=== PATIENT | male | born 1975 | race Caucasian/White ===

== ENCOUNTER 2016-03-17 16:52 | Inpatient (IN) | payer OTHER ==
[~2016-03-17] VITALS: Ht 182.9 cm; Wt 110.1 kg
[~2016-03-17 16:52] MED LIST: DOCU-41 PO; ENOX40DI8 SUBQ; HYDR-3797 PO; LIP40 PO; LORA10CA PO; LOSA1TAB70 PO; OXYC1TAB24 PO
--- NOTE | 2016-03-17 18:00 | DRSVH ---
PROCEDURE: CT ABDOMEN AND PELVIS WITH CONTRAST ([id number]) INDICATIONS: ABDOMINAL PAIN TECHNIQUE: After the administration of intravenous contrast, 5 mm thick sections acquired from the diaphragm to the symphysis. 5 mm coronal and sagittal reformats were acquired. For radiation dose reduction, the following was used: automated exposure control, adjustment of mA and/or kV according to patient siz e. COMPARISON: None. FINDINGS: Image quality: Excellent. ABDOMEN: Lung bases: Lung bases are clear. Heart size is normal. Solid organs: Liver and spleen are normal in size and enhancement. There is mild diffuse fatty infil tration in the liver. Gallbladder is filled with gallstones. No pericholecystic fluid collections are seen.. Biliary system is non dilated. Pancreas enhances normally. No adrenal nodules. Kidneys de monstrate normal size and enhancement, without hydronephrosis. Peritoneum and bowel: Bowel loops demonstrate normal wall thickness and caliber. No free fluid or a ir. The appendix is normal. Scattered diverticula are present. Nodes and vessels: No retroperitoneal or mesenteric adenopathy by size criteria. Aorta and inferior vena cava are normal in size. Miscellaneous: No ventral hernias. PELVIS: Genitourinary: Bladder wall thickness is normal. Miscellaneous: No inguinal hernias or adenopathy. Bones: No suspicious bony lesions. There is a right hip arthroplasty. No vertebral body compression fractures. IMPRESSION: Gallbladder filled with gallstones. Biliary tree is normal in size and no abnormality is seen of the pancreas. Total right hip arthroplasty. Scattered diverticula. Dictated by: Pavan Abbasi M.D. on 03/17/2016 at 17:58 , Dr. Gilbert was notified of the results Approved by: Pavan Abbasi M.D. on 03/17/2016 at 17:58
[2016-03-17] MEDS ORDERED: MetoCLOpramide 5 mg/mL 2 mL Inj IVPUSH PRN (19:25)
[2016-03-17] MEDS ORDERED: Ondansetron 2 mg/mL 2 mL Inj IVPUSH PRN (19:25)
[2016-03-17] MEDS: HYDROmorphone 1 mg/mL Inj IVPUSH PRN (20:37)
--- NOTE | 2016-03-17 21:19 | NUR ---
ADMIT; 40 yr old male to room 1029 via ambulatory with c/o nausea today, right side abd pain since Wednesday. See admit screens.
[2016-03-17 21:25] VITALS: BP 150/93; PULSE 70; RESP 20; O2SAT 96
[2016-03-17] MEDS: Ampicillin-Sulbactam Inj 3,000 MG in 0.9% Sodium Chloride 100 ML IV SCH (22:33)
--- NOTE | 2016-03-17 23:08 | NUR ---
GI; no c/o nausea. Took liquids at h.s. without problems.
[2016-03-17] MEDS: D5 0.45% NaCl + KCl 20 mEq/L 1,000 ML IV SCH (23:55)
[2016-03-18] VITALS (15 sets, daily range): BP systolic 132–177; BP diastolic 73–108; PULSE 84–104; RESP 13–21; O2SAT 92–99
[2016-03-18] MEDS: HYDROmorphone 1 mg/mL Inj IVPUSH PRN ×8 (00:08→20:02)
[2016-03-18] MEDS: Ampicillin-Sulbactam Inj 3,000 MG in 0.9% Sodium Chloride 100 ML IV SCH ×4 (02:30→20:47)
--- NOTE | 2016-03-18 03:40 | NUR ---
GI; no c/o nausea. Npo after midnight.
[2016-03-18] MEDS: D5 0.45% NaCl + KCl 20 mEq/L 1,000 ML IV SCH ×2 (04:49→09:04)
[2016-03-18 07:14] LABS: BASOPHILS % (AUTO) 0.4 % (0-3); EOSINOPHILS % (AUTO) 1.5 % (0-5); MONOCYTES % (AUTO) 17.8 % (4-12); Mean Corpuscular Hemoglobin 28.6 pg (27.0-35.0); Mean Corpuscular Volume 84.8 fL (81-100); NEUTROPHILS % (AUTO) 61.3 % (40-74); Platelet Count 203 bil/L (150-400)
--- NOTE | 2016-03-18 11:47 | PCM.PNSURG ---
Subjective Date of Service: Mar 18, 2016 Visit Information: Choledocholithiasis Date of Admission: Mar 17, 2016 at 18:37 Hospital Day # 2 Subjective: Still having epigastric pain. No nausea, vomiting Objective Vital Sign- Last 8 Hours Date Time Temp Pulse Resp B/P Pulse Ox O2 Delivery O2 Flow Rate FiO2 03/18/16 06:34 36.9 90 20 134/84 94 Room Air Intake and Output- Last 8 Hour 03/18/16 Cumulative From/Thru 07:00 03/17/16 21:23 - 03/18/16 06:36 Intake Total 530 ml 530 ml Balance 530 ml 530 ml IV Total 530 ml 530 ml Abdomen: Soft, Other Result Diagram: 03/18/16 0605 03/18/16 0605 Assessment & Plan Impression Choledocholithiasis D/W Dr. Morgan - ERCP with sphincterotomy followed by Lap Nelida with cholangiogram Problems: Tanvi Gilbert MD Mar 18, 2016 11:47
--- NOTE | 2016-03-18 13:45 | NUR ---
Social Work Brief Note: EMR reviewed. Patient is a 40 year old male admitted under observation status on 03/17/16 for cholelithiasis. Patient payer as [employer] out of stats. Patient PCP as MD Santoro. Patient resides in [place]. Patient emergency contact as mother Supriya, . Patient ambulating and independent with needs. Patient underwent ERCP yesterday and to undergo lap darrell today. No anticipated discharge needs notated. SW will continue to follow as needs arise. PLAN: Home via POV, pending clinical course Bruno STEELE
--- NOTE | 2016-03-18 14:30 | PCM.CHPMED ---
Subjective Date of Service: Mar 18, 2016 Provider requesting consult: Tanvi Gilbert MD Primary Physician: Admitting Physician: Tanvi Gilbert MD Primary Care Physician: Sami Santoro MD Attending Physician: Tanvi Gilbert MD Chief Complaint: Chief Complaint: Abdominal pain History of Present Illness: Patient is a 40 year old male with history of obesity, hypertension and hyperlipidemia who presented with severe right-sided abdominal pain, nausea, and vomiting after eating pizza and beer on February 27, and he went to the ED at that time. Abdominal ultrasound showed cholelithiasis without evidence of cholecystitis, with normal common duct, as well as hepatic steatosis. His symptoms improved and he was discharged to follow up with General Surgery. He had had similar symptoms again on 03/15/16 after eating pizza at a football game, described as severe mid-upper abdominal pain and back pain with nausea and vomiting. He was seen by Dr. Gilbert of General Surgery in clinic on 03/17/16 who scheduled him for a cholecystectomy. By this time, the patient reports that his urine had begun to turn dark and his abdominal pain had moved from the RUQ of his abdomen to the epigastric region. There was concern for choledocholithiasis and Gastroenterology was consulted. Today he reports 8/10 epigastric abdominal pain, nausea, vomiting, dark urine, and constipation. He states he has not had a bowel movement for 3-4 days. UA was normal, with 0-2 RBCs. CBC was normal. Total bilirubin 5.3, AST 153, ALT 449 , alk phos 233. Lipase was 33. CT abdomen showed gallbladder filled with gallstones, biliary tree normal in size and no abnormality seen of the pancreas. Review of Systems: Comprehensive review of systems conducted and was negative except for the pertinent positives listed above. PMH Past Medical History - Obesity - Hyperlipidemia - Hypertension Bedside Blood Glucose: 135 Surgical History Right hip arthroplasty Apr 2015 Allergies: Coded Allergies: No Known Allergies (Unverified , 03/17/16) Family History Family History Grandfather had LA Father had HTN Social History Hx Alcohol Use: Yes (Once per week)Hx Substance Use: No Smoking Status: Former Smoker (Quit in 2013 after 5 years of smoking) Exam Vital Signs Vital Sign - Last Date Time Temp Pulse Resp B/P Pulse Ox O2 Delivery O2 Flow Rate FiO2 03/18/16 06:34 36.9 90 20 134/84 94 Room Air Intake and Output 03/17/16 03/17/16 03/18/16 Cumulative From/Thru 15:00 23:00 07:00 03/17/16 21:23 - 03/18/16 06:36 Intake Total 530 ml 530 ml Balance 530 ml 530 ml IV Total 530 ml 530 ml Additional Information: General: Alert, Oriented X3, Cooperative, No Acute Distress Head: Normocephalic, atraumatic. External ears normal. Eyes: PERRLA, EOMI. Mild scleral icterus. Mouth: Mouth Normal, Mucous Membranes Moist/Fleming-Neon Chest & Lungs: Clear to auscultation bilaterally with no crackles, wheezes, or rhonchi. Cardiovascular: Regular Rate/Rhythm, Normal S1, Normal S2, No Murmurs/Rubs/ Gallops Abdomen: Significant epigastric tenderness. Mild RUQ tenderness, Anaya's sign negative, Non-distended, No masses, Normoactive bowel tones Musculoskeletal: Normal Range of Motion Extremities: No cyanosis/clubbing/edema bilaterally Neurological: Grossly Neurologically Intact, Normal Speech. Lab and Diagnostics Result Diagram: 03/18/1660403/18/16604 Assessment & Plan Assessment Patient is a 40 year old male with history of obesity, hypertension and hyperlipidemia who presented with severe right-sided abdominal pain, nausea, and vomiting. Admitted for cholelithiasis and possible choledocholithiasis. Planned for cholecystectomy. 1. Cholelithiasis with possible choledocholithiasis, acute. - Pt presents with RUQ abdominal pain which has now evolved into epigastric pain , with nausea, vomiting, anorexia, and dark stools. LFTs and alk phos are elevated, bilirubin elevated. The possibility of choledocholithiasis is high, so we will proceed with ERCP. - CT abd/pelvis showed: Gallbladder filled with gallstones. Biliary tree is interpreted to be normal in size, but this is questionable, and no abnormality is seen of the pancreas. - ERCP planned for today. - Lipase ordered - NPO Problems: VTE Mechanical Devices: Intermittant Pneumatic CD Attending Statement Pt seen and examined agree with resident physician Cory and Cruz I reviewed CT segura with radiology and his CBD is dilated to approximately 9.7mm with ? cbd stone in distal cbd discussed risks and benefits of ERCP with patient in detail and he agreed to proceed with ERCP. Quisumbing,Jg R Mar 18, 2016 14:18 Josefina Morgan MD Mar 18, 2016 17:12
--- NOTE | 2016-03-18 14:34 | NUR ---
To Or To OR/Endo at 1426
[2016-03-18] MEDS ORDERED: Bupivacaine-MPF 0.5% 30 mL Inj INFILTRATE ONE (14:56)
[2016-03-18] MEDS ORDERED: Lactated Ringer's 1,000 ML IV ONE (14:57)
--- NOTE | 2016-03-18 16:45 | DRSVH ---
PROCEDURE: X-RAY E.R.C. BILIARY DUCTS ([id number]) INDICATIONS: STENT PLACEMENT TECHNIQUE: Fluoroscopic spot films were acquired by the gastroenterology service during ERCP procedu re. COMPARISON: [facility], CT, CT ABD PELVIS W CON, 03/17/2016, 17:28. FINDINGS: Reimaging shows a sequence of 4 films documenting guidewire cannulation of the common duct, placement of a balloon tipped catheter cephalad with contrast injection above, and then a placement of a biliary stent crossing the expected region of the pancreas, of the duodenal lumen. with its tip extending into the expected region of the duodenal lumen. IMPRESSION: Cholangiographic imaging as discussed, with stent placement crossing the common duct and extending into the duodenal lumen region. Dictated by: Ike Patel M.D. on 03/18/2016 at 16:43 Approved by: Ike Patel M.D. on 03/18/2016 at 16:43
[2016-03-18] MEDS ORDERED: Lactated Ringer's 1,000 ML IV SCH (16:52)
[2016-03-18] MEDS ORDERED: Lactated Ringer's 500 ML IV PRN (16:52)
--- NOTE | 2016-03-18 16:53 | PCM.HPANE ---
Patient Data Surgeon Admitting Provider:Tanvi Gilbert MD Attending Provider:Tanvi Gilbert MD Primary Care Physician:Sami Santoro MD Other Provider: Reason for Visit Cholelithiasis CHOLELITHIASIS Ht/WT & BMI Height (Feet): 6 Height (Inches): 0.00 Weight (Kilograms): 110.100 Body Mass Index 32.88 Allergies Coded Allergies: No Known Allergies (Unverified , 03/17/16) Past Anesthesia History Anesthesia History: Denies:: Anesthesia Reactions, Malignant Hyperthermia Diabetes History Hx Diabetes?: No Current Bedside Blood Glucose: 135 MRSA MRSA: No Medications Active Scripts oxyCODONE-Acetaminophen 5-325 mg 1 Tab Tablet1-2 Tab PO Q4-6H PRN For Severe Pain #60 TABLET Prov:Ellis Tate PA-C 04/11/15 Reported Medications Losartan/HCTZ 100-25 mg 1 Each Tablet1 Tablet PO DAILY Ref 0 04/04/15 Atorvastatin (Lipitor)40 Mg Hyejaw46 Mg PO DAILY Ref 0 04/04/15 Discontinued Reported Medications Loratadine (Claritin)10 Mg Unoisgl91 Mg PO DAILY Ref 0 04/08/15 Discontinued Scripts oxyCODONE-Acetaminophen 5-325 mg 1 Each Pxksxx15 Tab PO Q6H PRN For Pain #20 TABLET Ref 0 Prov:Chana Gutierrez MD 02/28/16 Hydroxyzine Pamoate (HydrOXYzine Pamoate)25 Mg Gptdyib60-98 Mg PO Q4H PRN For Restlessness #60 CAPSULE Prov:Ellis Tate PA-C 04/11/15 Enoxaparin Sodium 40 Mg/0.4 Ml Inj40 Mg SUBQ Q24 DVT prophylaxis #11 SYR Lovenox 40 mg daily X 2 weeks postop. transitioned to ASA 325 mg twice a day x4 weeks postop. Prov:Ellis Tate PA-C 04/11/15 Docusate Sodium (Colace)100 Mg Hjstpky566 Mg PO BID CONSTIPATION #20 CAPSULE Prov:Ellis Tate PA-C 04/11/15 History History of ENT Problems?: No Hx of Heart Problems?: Yes Cardiovascular History: Positive for:: Hypertension (HYPERLIPIDEMIA) Other Cardiac History: above per "recall". Hx of Respiratory Problem?: No Respiratory History: Denies:: Use of C-PAP Machine (SNORES) Hx Neurologic Problems?: No Hx of GI Problems?: No Hx of Problems?: No Other Pertinent History: above per "recall" Male Hx: Denies:: Prostate Problems Scrotal Mass Testicular Surgery Skin History: Denies:: History Skin Disorders? 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) Musculoskeletal Trauma (S/P RT HIP DEBRIDEMENT OF LABRAL TEAR) Hx of Psycho/Social Problems?: No Hx Surgeries?: Yes (I&D NECK ABCESS,RT HIP DEBRIDEMENT OF LABRUM TEAR, hip replacement) Hx Any Other Health Problems?: Yes Other History: Denies:: Cancer Endocrine Disease Hospitalization Thyroid Disease History Blood Transfusions: Positive for:: Accept Blood Products? Denies:: Blood Transfusions Hx Diabetes: NoBedside Blood Glucose: 135 Hx Alcohol Use: Yes (Once per week)Hx Substance Use: No Smoking Status: Former Smoker (Quit in 2013 after 5 years of smoking) Have You Smoked inLast 12 mo: No Stop/Bang Treated for Sleep Apnea?: No Do You Have a CPAP Machine?: No S-Snoring: Do You Snore Loudly: Yes T-Tired: feel tired, fatigued: No O-Obsered: Observed not breath: No P-Blood Pressure: treated: Yes B- Body Mass Index > 35 kg/m2: No A- Age over 50: No N- Neck Large Circumference: No G- Gender Male: Yes MANI Total Score: 3 Risk Assessment Category Category 1A: Patient has history of documented sleep apnea, and HAS NOT received any narcotic, sedative or anesthesia administration during this stay. Category 1B: Patient has history of documented sleep apnea, and HAS received any narcotic , sedative or anesthesia administration during this stay Category 2: Patient has SUSPECTED Obstructive Sleep Apnea, and HAS received any narcotic , sedative or anesthesia administration during this stay. Category 3: Patient has SUSPECTED Obstructive Sleep Apnea and HAS NOT received narcotic, sedative or anesthesia administration during this stay. Category 4: Outpatient in Procedural Areas with known sleep apnea or who screen positive for High Risk via the STOP/BANG questionnaire. Exam Exam General Appearance: Alert, Oriented X3, Cooperative, No Acute Distress HEENT/AIRWAY: MP 2, Neck Movement (FROM), Mouth Opening (3 FBMO) Lungs: Normal Air Movement Heart: Regular Rate/Rhythm Meds/Labs/Diagnostics Admission Meds Current Medications Potassium Chloride/Dextrose/ Sod Cl 1,000 ml @ 100 mls/hr Q10H IV Last administered on 03/18/16 09:04; Start 03/17/16 at 19:22 Ampicillin Sodium/ Sulbactam Sodium/ Sodium Chloride (Unasyn Inj/ Normal Saline ) 100 ml @ 200 mls/hr Q6 IV Last administered on 03/18/16 10:00; Start at 20:30 Bupivacaine HCl 30 ml 30 ml STK-MED ONCE INJ Last administered on 03/18/16 14: 56; Start 03/18/16 at 14:56; Stop 03/18/16 at 14:59; Status DC Lactated Ringer's (Lr) 1,000 ml @ ud STK-MED ONCE IV Last administered on 03/18 14:57; Start 03/18/16 at 14:57; Stop 03/18/16 at 14:59; Status DC Bedside Blood Glucose: 135 Labs Test 03/18/16 06:05 03/18/16 12:43 White Blood Count 5.2th/mm3 (3.8-10.1) Red Blood Count 5.14mil/mm3 (4.40-5.80) Hemoglobin 14.7g/dL (13.8-17.2) Hematocrit 43.6% (41.0-50.0) Mean Corpuscular Volume 84.8fL (81-100) Mean Corpuscular Hemoglobin 28.6pg (27.0-35.0) Mean Corpuscular Hemoglobin Concent 33.7% (32.0-37.0) Red Cell Distribution Width 13.7% (12.3-15.4) Platelet Count 203bil/L (150-400) Neutrophils (%) (Auto) 61.3% (40-74) Lymphocytes (%) (Auto) 19.0% (14-46) Monocytes (%) (Auto) 17.8% (4-12) Eosinophils (%) (Auto) 1.5% (0-5) Basophils (%) (Auto) 0.4% (0-3) Sodium Level 141mEq/L (134-144) Potassium Level 3.9mEq/L (3.5-5.2) Chloride Level 99mEq/L (97-108) Carbon Dioxide Level 30mmol/L (18-29) Blood Urea Nitrogen 11mg/dL (6-24) Creatinine 0.71mg/dL (0.76-1.27) Estimat Glomerular Filtration Rate 130mL/min (>59) Glucose Level 135mg/dL (60-99) Calcium Level 9.2mg/dL (8.5-10.1) Total Bilirubin 5.3mg/dL (0.0-1.2) Aspartate Amino Transf (AST/SGOT) 153U/L (0-50) Alanine Aminotransferase (ALT/SGPT) 449U/L (0-44) Alkaline Phosphatase 233U/L (25-150) Total Protein 6.7g/dL (6.4-8.4) Albumin 4.0g/dL (3.4-5.0) Lipase 33U/L (13-60) Plan Impression Patient chart reviewed, patient interviewed and anesthestic plan with risks, benefits, and alternatives discussed, and informed consent obtained. NPO Status: 199904/07/15 ASA Physical Status: ASA2 Mod Systemic Disease Anesthetic Plan: GA Bene/Risks/Altern/Consents: Yes HP Complete Prior to Induction: Yes Tomasz Mckenna MD Mar 18, 2016 15:04
[2016-03-18] MEDS ORDERED: Phenylephrine 10,000 mCg/mL Inj IVPUSH PRN (16:55)
[2016-03-18] MEDS ORDERED: EPHEDrine Sulfate 50 mg/mL Inj IVPUSH PRN (16:55)
[2016-03-18] MEDS ORDERED: Atropine 0.4 mg/mL Inj IVPUSH PRN (16:55)
[2016-03-18] MEDS ORDERED: Labetalol 5 mg/mL 4 mL Inj IV PRN (16:55)
[2016-03-18] MEDS ORDERED: hydrALAZINE 20 mg/mL Inj IVPUSH PRN (16:55)
[2016-03-18] MEDS ORDERED: Ondansetron 2 mg/mL 2 mL Inj IVPUSH PRN (16:55)
[2016-03-18] MEDS ORDERED: fentaNYL-PF 50 mCg/mL 2 mL Inj IVPUSH PRN (16:55)
[2016-03-18] MEDS ORDERED: Rocuronium 10 mg/mL 5 mL Inj ONE (18:38)
[2016-03-18] MEDS ORDERED: Dexamethasone 4 mg/mL Inj ONE (18:38)
[2016-03-18] MEDS ORDERED: Propofol 10,000 mCg/mL 20 mL Inj ONE (18:38)
[2016-03-18] MEDS ORDERED: Ondansetron 2 mg/mL 2 mL Inj ONE (18:38)
[2016-03-18] MEDS ORDERED: MetoCLOpramide 5 mg/mL 2 mL Inj ONE (18:38)
[2016-03-18] MEDS ORDERED: fentaNYL-PF 50 mCg/mL 2 mL Inj ONE ×2 (18:38→19:55)
[2016-03-18] MEDS ORDERED: Phenylephrine/NS 100 mCg/mL 10 mL Syringe IVPUSH ONE (18:38)
[2016-03-18] MEDS ORDERED: Neostigmine 1 mg/mL 5 mL Inj ONE (18:38)
--- NOTE | 2016-03-18 19:21 | PCM.ANEP2 ---
Post Anesthesia Evaluation ASA/CMS Post Anesthesia VS in Patient's Normal Range?: Yes Resp Stable; Airway Patent?: Yes CV Function & Hydration Stable: Yes Mental Status Recovered?: Yes Pain control Satisfactory?: Yes N/V Control Satisfactory?: Yes Tomasz Mckenna MD Mar 18, 2016 19:21
--- NOTE | 2016-03-18 19:21 | PCM.ANEP1 ---
Post Anesthesia Phase 1 PACU Phase 1 Assessment Date of Service: Mar 18, 2016 Vital Signs Vital Signs Date Time Temp Pulse Resp B/P Pulse Ox O2 Delivery O2 Flow Rate FiO2 03/18/16 18:55 36.4 96 21 163/98 96 Simple Mask 15 Anesthetic Administered: GA Level of Alertness: Awake, talking BANGURA's with Equal Strength: Yes Pain: Yes (4) Pain Scale Score: 1 Nausea or Vomiting: No Oxygen Delivery: Room Air Lungs: Normal Air Movement Dermatome Level: Full Sensation Tomasz Mckenna MD Mar 18, 2016 19:21
--- NOTE | 2016-03-18 19:22 | ENDO ---
[address] [address] ENDOSCOPY PROCEDURE PATIENT: NOHEMI MONTES : 1975 MR#: [id number] ADMIT: 03/17/2016 JOB ID: [id number] PROCEDURE: Endoscopic retrograde cholangiopancreatography. INDICATIONS: Jaundiced with imaging test revealing a dilated CBD. ANESTHESIA: Please see anesthesia report for details regarding general anesthesia. INSTRUMENT USED: TJF Q180 V. PROCEDURE DETAILS: After informed consent was obtained, the patient was brought into the OR suite where he was placed under general anesthesia and then placed in the standard endoscopic retrograde cholangiopancreatography position. A bite block was placed. An initial hospital account liaison film did not reveal any abnormalities in the area of the right upper quadrant. Next, the ERCP scope was advanced without difficulty to the bite block and to the second portion of the duodenum. The ampulla was identified and appeared unremarkable. There was a small amount of bile flow seen. Using an Olympus Clevercut tome, I initially cannulated the pancreatic duct. No dye was injected. The catheter was then withdrawn and then redirected and then we gained access into the bile duct.. Initial cholangiogram revealed an approximately 9 mm common bile duct. I did appreciate a filling defect in the distal CBD which measured approximately 9 mm. Filling of the cystic duct was noted. However, I did not appreciate filling of the gallbladder. The intrahepatics filled and appeared unremarkable. Next, a moderate sized sphincterotomy was performed. Next, using an inject from below balloon, we attempted to sweep the stone from the duct, however, this was unsuccessful as resistance was encountered when we attempted to sweep the CBD. I then deflated the balloon and on attempting to remove the balloon catheter, I met a moderate amount of resistance as we tried to remove the catheter. At this point, I advanced the deflated balloon catheter back into the duct and changed my scope position and still we had moderate amount of resistance as I removed the deflated balloon catheter. At this point, I elected to place a [employer] 7-Estonian x 7 cm plastic biliary stent. Following placement of the stent successfully which was confirmed by fluoroscopic and endoscopic imaging there was rapid drainage of contrast seen from the biliary tree. IMPRESSION: Status post endoscopic retrograde cholangiopancreatography with sphincterotomy with retained common bile duct stone for which a biliary stent was placed. RECOMMENDATIONS: 1. Repeat ERCP in one month for stone and stent extraction. 2. Laparoscopic cholecystectomy as per Surgery. No immediate postprocedure complications noted. MTDD
[2016-03-18] MEDS ORDERED: hydrOXYzine Inj 25 MG/1 mL SDV IM ONE ×2 (19:37→19:40)
[2016-03-18] MEDS ORDERED: MetoCLOpramide 5 mg/mL 2 mL Inj IVPUSH PRN (19:50)
--- NOTE | 2016-03-18 20:08 | OP ---
[address] [address] OPERATIVE REPORT PATIENT: NOHEMI MONTES : 1975 MR#: [id number] ADMIT: 03/17/2016 JOB ID: [id number] DATE OF SURGERY: 03/18/2016 PREOPERATIVE DIAGNOSIS(ES): Choledocholithiasis status post endoscopic retrograde cholangiopancreatography with sphincterotomy and stent placement. POSTOPERATIVE DIAGNOSIS(ES): Choledocholithiasis status post endoscopic retrograde cholangiopancreatography with sphincterotomy and stent placement. PROCEDURE PERFORMED: Laparoscopic cholecystectomy with intraoperative cholangiogram. SURGEON: Tanvi Gilbert MD. SLATE CUTTER: Jose Raul Carranza PA-C. ANESTHESIA: General endotracheal with local. PREOPERATIVE INDICATIONS: The patient is a 40-year-old gentleman who had severe right-sided abdominal pain after a football game before . He went to the emergency department and was diagnosed with gallstones but did not end up seeing me until yesterday that was March 17, 2016 in clinic. By the time he saw me, he had recurrent abdominal pain in the middle of the abdomen and he was vomiting, prompting me to get an urgent CT scan and repeat his blood tests. He was found to have elevated liver function studies including a bilirubin of 6.6, with a dilated bile duct with some intrahepatic biliary ductal dilatation. And so I admitted him to the hospital, kept him n.p.o. on antibiotics and consulted Dr. Morgan to perform ERCP with sphincterotomy. He did that today. There was a stone that he could not extract, so he put a stent in and after his procedure was done, we placed the patient supine and proceeded under the same anesthetic for laparoscopic cholecystectomy. PROCEDURE DETAILS: The abdomen was prepped and draped in the usual sterile fashion. Surgical time-out was undertaken using safety checklist, and all were in agreement. We began by making a supraumbilical curved incision and entered the abdomen using open Lisbet technique. I placed three 5 mm ports under direct vision in the upper abdomen and retracted the gallbladder cephalad and to the right. It was obviously packed with stones and it was hard to manipulate. There was also significant inflammation all around it. After incising the peritoneum on the gallbladder anteriorly and posteriorly, I dissected the cystic artery and divided it between clips. After that, I tried to dissect the cystic duct free but because of the inflammation and the gallbladder being extremely hard to manipulate, I was not able to do that safely. So, I decided to make a plane between the cystic plate and the gallbladder higher up and then took the gallbladder in top-down fashion all the way down to the infundibulum and the cystic duct. After that, I put an Endoloop on the specimen side and obtained a cholangiogram which showed good cystic duct stump with stent and retained common bile duct stone with no evidence of biliary injury. After that, I put another Endoloop on the cystic duct stump and divided the duct with scissors and placed the specimen in an EndoCatch bag. After that, I ensured hemostasis in the right upper quadrant and irrigated and suctioned all the fluid free and then removed the bag through the umbilical port site. The umbilical port site was then closed with [id number] 0-Vicryl suture. The skin was reapproximated with 4-0 Monocryl. Steri-Strips and sterile dressing were applied. Patient was recovered from anesthesia and was taken to the recovery room in stable condition.
[2016-03-19 01:23] VITALS: BP 122/71; PULSE 94; RESP 20; O2SAT 93
[2016-03-19] MEDS: HYDROmorphone 1 mg/mL Inj IVPUSH PRN (02:18)
[2016-03-19] MEDS: Ampicillin-Sulbactam Inj 3,000 MG in 0.9% Sodium Chloride 100 ML IV SCH ×2 (02:20→08:51)
[2016-03-19] MEDS: D5 0.45% NaCl + KCl 20 mEq/L 1,000 ML IV SCH (05:07)
[2016-03-19 05:18] VITALS: BP 125/69; PULSE 89; RESP 18; O2SAT 94
[2016-03-19 07:10] LABS: Hepatitis A Antibody IgM Negative (Negative); Hepatitis B Core Antibody IgM Negative (Negative)
--- NOTE | 2016-03-19 07:10 | NUR ---
Post Op Received from PACU to 1029 @ 2030. Able to transfer into bed and ambulate on arrival. Mild sedation but awakens to name. Denies pain or discomfort. D5 1/2NS 20K @70ml/hr continued per orders. Band aid dressings x4 CDI. RA without SOB. Reoriented to call light use with return demonstration. Tolerating sips of water without nausea. Has denied any significant complaints all shift.
[2016-03-19] MEDS ORDERED: SENN-133 PO (08:52)
[2016-03-19] MEDS ORDERED: Bisacodyl RECTAL (08:52)
[2016-03-19] MEDS ORDERED: OXYC5TAB72 PO (08:52)
--- NOTE | 2016-03-19 09:29 | PCM.DISURG ---
Surgical Discharge Instruction Date of Service Mar 19, 2016 Dates of Hospitalization Date of Hospital Admission Mar 17, 2016 at 18:37 Providers Admitting Physician: Tanvi Gilbert MD Primary Care Physician: Sami Santoro MD Attending Physician: Tanvi Gilbert MD Discharge Diagnosis Discharge Diagnosis Primary diagnosis: Choledocholithiasis status post endoscopic retrograde cholangiopancreatography with sphincterotomy and stent placement. Secondary diagnosis: Hypertension Dyslipidemia Obesity BMI 32.9 Former smoker quit 2013 Post Operative diagnosis Same Diet Discharge Diet: Low fat (next 2 weeks; ), Other (Limited alcohol) Activity Discharge Activity-General: Balance rest and activity, No driving while taking narcotic Dressing and Incisional Care Dressing Care: Allow Steri Stripes to fall off Hygiene: May shower Additional Instructions Discharge Instructions Please be sure to follow up with Dr. Tanvi Gilbert 1-[address] Josefina Morgan Software Deployment Engineer for stent removal within the month Follow Up Plan Follow Up Plan Dr. Josefina Morgan Software Deployment Engineer 1-2 weeks for follow up and stent removal arrangements Follow-up Provider (F9): Tanvi Gilbert MD Follow-up appointment: Weeks (1-2) Call your provider for: Fever, Chills, Increasing abdominal pain, Discharge @ incision, pus discharge Adilene Fregoso PA-C Mar 19, 2016 09:29
--- NOTE | 2016-03-19 09:40 | PCM.DC.SUR ---
Discharge Summary Date of Service: Mar 19, 2016 Date of Hospital Admission: Mar 17, 2016 at 18:37 Date of Operation(s): 03/18/2016 Date of Discharge: 03/19/2016 Diagnosis at Time of Discharge Primary diagnosis: Choledocholithiasis status post endoscopic retrograde cholangiopancreatography with sphincterotomy and stent placement. Secondary diagnosis: Hypertension Dyslipidemia Obesity BMI 32.9 History of smoking quit 2013 Problems: Operation Laparoscopic cholecystectomy with intraoperative cholangiogram. Brief History and Physical: Patient is a 40 year old male with history of obesity, hypertension and hyperlipidemia who presented with severe right-sided abdominal pain, nausea, and vomiting after eating pizza and beer on February 27, and he went to the ED at that time. Abdominal ultrasound showed cholelithiasis without evidence of cholecystitis, with normal common duct, as well as hepatic steatosis. His symptoms improved and he was discharged to follow up with General Surgery. He had had similar symptoms again on 03/15/16 after eating pizza at a football game, described as severe mid-upper abdominal pain and back pain with nausea and vomiting. He was seen by Dr. Gilbert of General Surgery in clinic on 03/17/16 who scheduled him for a cholecystectomy. By this time, the patient reports that his urine had begun to turn dark and his abdominal pain had moved from the RUQ of his abdomen to the epigastric region. There was concern for choledocholithiasis and Gastroenterology was consulted. Today he reports 8/10 epigastric abdominal pain, nausea, vomiting, dark urine, and constipation. He states he has not had a bowel movement for 3-4 days. UA was normal, with 0-2 RBCs. CBC was normal. Total bilirubin 5.3, AST 153, ALT 449 , alk phos 233. Lipase was 33. CT abdomen showed gallbladder filled with gallstones, biliary tree normal in size and no abnormality seen of the pancreas. Consultants: Dr. Josefina Morgan Gastroenterology Dr. Tanvi Gilbert General Surgery Hospital Course: After undergoing the above procedure the patient was taken to the recovery room in stable condition. His nausea was initially treated with oral Zofran, nausea persisted and was relieved with Reglan and Vistaril. Pain was treated with IV fentanyl and Dilaudid. Transferred from PACU to Room 1029 @ 2030. Able to transfer into bed and ambulate on arrival. Mild sedation but awakens to name. Denies pain or discomfort. D5 1/2NS 20K @70ml/hr continued per orders. Band aid dressings x4 CDI. RA without SOB. Reoriented to call light use with return demonstration. Tolerating sips of water without nausea. Has denied any significant complaints all shift. The following morning postop day 1 the patient denied nausea, pain was controlled with oral narcotics, ate a light breakfast, ambulating independently and ready for discharge to home Pathology: Pending Disposition: Vital signs stable, afebrile, voiding, ambulating, pain control with oral analgesics, tolerating food by mouth Vital signs at discharge: Temperature 36.8, pulse 89, respirations 18, BP 125/69 , oxygen saturations 94% room air Follow-up Plan: Dr. Tanvi Gilbert 1-2 weeks with LFT's prior Dr Josefina Morgan 1-2 weeks for follow up and stent removal arrangemnts ([Bisacodyl]) 10 MG SUPP 10 MG RECTAL DAILY PRN PRN For Constipation Atorvastatin (Lipitor) 40 Mg Tablet 40 MG PO DAILY (Reported) Losartan/HCTZ 100-25 mg (Losartan/HCTZ 100-25 mg) 1 Each Tablet 1 TABLET PO DAILY (Reported) Sennosides (Senna) 8.6 Mg Tablet 17.2 MG PO DAILY oxyCODONE (oxyCODONE) 5 Mg Tablet 5 MG PO Q4H PRN PRN For Moderate Pain Adilene Fregoso PA-C Mar 19, 2016 09:40
--- NOTE | 2016-03-19 09:53 | PCM.PNMED ---
Subjective Date of Service Mar 19, 2016 Subjective No acute events overnight. Patient states that his epigastric pain is nearly resolved, and denies nausea, vomiting, diarrhea, fevers, or chills. He reports some mild tenderness around the incision sites but otherwise has no complaints. Exam Vital Signs Vital Sign - Last Date Time Temp Pulse Resp B/P Pulse Ox O2 Delivery O2 Flow Rate FiO2 03/19/16 05:18 36.8 89 18 125/69 94 Room Air 03/18/16 20:36 2.00 Intake and Output 03/18/16 03/18/16 03/19/16 Cumulative From/Thru 15:00 23:00 07:00 03/17/16 21:23 - 03/19/16 06:11 Intake Total 1240 ml 400 ml 1221 ml 3391 ml Output Total 350 ml 350 ml Balance 890 ml 400 ml 1221 ml 3041 ml Intake Oral 740 ml 520 ml 1260 ml IV Total 500 ml 400 ml 701 ml 2131 ml Output Urine Total 350 ml 350 ml # Voids 1 1 # Bowel Movements 0 1 1 Exam General: Alert, Oriented X3, Cooperative, No Acute Distress Head: Normocephalic, atraumatic. External ears normal. Eyes: PERRLA, EOMI. Mouth: Mouth Normal, Mucous Membranes Moist/Cowley Chest & Lungs: Clear to auscultation bilaterally with no crackles, wheezes, or rhonchi. Cardiovascular: Regular Rate/Rhythm, Normal S1, Normal S2, No Murmurs/Rubs/ Gallops Abdomen: Mild epigastric tenderness, Non-distended, No masses, Hypoactive bowel tones. Laparoscopic incision sites clean without erythema or discharge. Musculoskeletal: Normal Range of Motion Extremities: No cyanosis/clubbing/edema bilaterally Neurological: Grossly Neurologically Intact, Normal Speech. Lab and Diagnostics Result Diagram: 03/18/16 0605 03/19/16 0600 Assessment & Plan Patient is a 40 year old male with history of obesity, hypertension and hyperlipidemia who presented with severe right-sided abdominal pain, nausea, and vomiting. Admitted for cholelithiasis and choledocholithiasis. Postoperative day 1 s/p ERCP and cholecystectomy. 1. Choledocholithiasis, acute. Stable. - Pt presented with RUQ pain and cholecystitis. His pain began to migrate to the epigastric region and there was suspicion for choledocholithiasis. ERCP with sphincterotomy was performed, and a common bile duct stone was found. However, it was unable to be removed and a biliary stent was placed. Today, LFTs are improving and his pain is resolving. Lipase increased from 33 to 69, which could be attributed to obstruction vs ERCP instrumentation. - Will schedule repeat ERCP in 4 weeks to remove biliary stent and stone. 2. Cholelithiasis, acute. Resolved. - Pt presents with RUQ abdominal pain which evolved into epigastric pain, with nausea, vomiting, anorexia, and dark stools. LFTs and alk phos elevated, bilirubin elevated. CT abd/pelvis showed: Gallbladder filled with gallstones, dilated common bile duct with stone in common bile duct. Pt now s/p cholecystectomy, reports resolving pain, tolerating food well. - Followed by General Surgery - Will likely discharge today VTE Mechanical Devices: Intermittant Pneumatic CD Attending Statement Pt seen and examined agree with resident physician axel ramos My office will contact him for ERCP in 4 weeks. Jg Aguilar Mar 19, 2016 09:39 Josefina Morgan MD Mar 20, 2016 18:39
--- NOTE | 2016-03-19 10:33 | DRSVH ---
PROCEDURE: X-RAY OPERATIVE CHOLANGIOGRAM ([id number]) INDICATIONS: ERCP, CHOLIANGIOGRAM COMPARISON: None. FINDINGS: Biliary ducts: The surgeon injected contrast into the biliary ducts after cannulation of the cystic duct stump. The visualized intrahepatic biliary ducts are normal in caliber. Overall, the common bile duct demonstrates normal caliber; however a focal filling defect is present within the central porti on of the common bile duct suggesting the presence of small stones or sludge. No evidence for iatroge de ductal injury. Duodenum: Contrast flows promptly through the sphincter of Oddi into the duodenum, which appears nor mal in caliber. IMPRESSION: 1. Central choledocholithiasis versus sludge within the common bile duct as described above. Dictated by: Maine Billings M.D. on 03/19/2016 at 10:31 Approved by: Maine Billings M.D. on 03/19/2016 at 10:31
--- NOTE | 2016-03-19 11:43 | NUR ---
Social Work Continued Discharge Planning: SW acknowledged order for discharge. SW met with patient at bedside to discuss discharge plan. Plan is home upon discharge. Patient states being independent with needs and has no identified discharge needs at this time. Patient states having available transport home today. No other needs identified at this time. SW to follow. PLAN: Home, via POV. No anticipated discharge needs at this time. Bruno STEELE
--- NOTE | 2016-03-19 13:10 | NUR ---
Discharge Orders for discharge received. The patient was made aware of the plan and agreeable to the discharge. The patient was given his scripts and information regarding his diagnosis, treatment, medications, signs and symptoms to be aware of, follow up instructions and wound dressing instructions. Patient also given note excusing patient from work. The patient signified understanding of this information and his asymptomatic IV was removed intact. The patient was then dressed in his own clothing and gathered his belongings. The patient then walked to the main entrance and into an awaiting private vehicle. At the time of discharge the patient was alert and oriented, with no complaints of out of control pain or nausea.
[2016-03-20 03:09] LABS: Hepatitis A Antibody IgM Negative (Negative); Hepatitis B Core Antibody IgM Negative (Negative)
--- NOTE | 2016-03-23 11:59 | PATH ---
SURGICAL PATHOLOGY Attending Physician:Tanvi Gilbert MD CASE STATUS: Signed Out PATIENT NAME: NOHEMI MONTES PID: [id number] : 1975 DATE COLLECTED:03/18/2016 00:00 SPECIMEN: Gallbladder CLINICAL HISTORY: A: GALLBLADDER FINAL DIAGNOSIS: 1.GALLBLADDER: CHOLELITHIASIS WITH ASSOCIATED CHRONIC CHOLECYSTITIS. ICD10 CODE K80.66 GROSS DESCRIPTION: The specimen is received in formalin, labeled with the patient's name, sublabeled as gallbladder and consists of an intact gallbladder (length-7.3 cm, diameter-2.5 cm) with a partially obstructed cystic duct. The resection margin is received sutured. The serosa is weston-white and partially covered by adipose tissue. The lumen contains multiple pale green solid firm multifaceted calculi (4.0 x 3.7 x 1.7 cm in aggregate, each approximately the same size-0.5 x 0.5 x 0.4 cm) with xiomy crystalline cut surfaces. The mucosa is weston-israel shiny and flat with a trabeculated appearance. The wall is up to 0.4 cm thick. No nodules, masses or lesions are identified. 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 03/20/16 JM MICRO DESCRIPTION: See diagnosis. ICD-9 CODES: CPT CODES: 1: 04740 Electronically Signed Out León Nguyen MD [facility] Pathology [facility] [address], [place] [address] Technical component performed at [facility], [facility] [address], [place], [address]
== END 2016-03-19 11:47 | disposition home or self-care (01) | DRG 419 ==
LOC: SCT 16:52 → UNDOADMOB 18:37 → OSC 18:37 → SCT 18:37 → OSC 18:37 → SCT 03-19 11:45 → OSC 03-19 11:45 → UNDODISOB 03-19 11:45
PROVIDERS: ADMIT Student in an Organized Health Care Education/Training Program; ATTEND Student in an Organized Health Care Education/Training Program
PROC: 0F9980Z Drainage of Common Bile Duct with Drainage Device, Via Natural or Artificial Opening Endoscopic (ICD-10-PCS; 2016-03-18)
PROC: 0FT44ZZ Resection of Gallbladder, Percutaneous Endoscopic Approach (ICD-10-PCS; principal; 2016-03-18 13:30)
PROC: BF00YZZ Plain Radiography of Bile Ducts using Other Contrast (ICD-10-PCS; 2016-03-18 13:30)
DX: K80.64 Calculus of gallbladder and bile duct with chronic cholecystitis without obstruction (principal); I10 Essential (primary) hypertension; E66.9 Obesity, unspecified; E78.5 Hyperlipidemia, unspecified; Z68.32 Body mass index [BMI] 32.0-32.9, adult; Z96.641 Presence of right artificial hip joint; Z87.891 Personal history of nicotine dependence

== ENCOUNTER 2016-04-24 13:13 | Day surgery (SDC) | payer OTHER ==
[~2016-04-24] VITALS: Ht 182.9 cm; Wt 111.4 kg
[2016-04-24] VITALS (8 sets, daily range): BP systolic 118–173; BP diastolic 72–101; PULSE 72–87; RESP 10–20; O2SAT 93–99
[~2016-04-24 13:13] MED LIST changes: +Bisacodyl RECTAL; -DOCU-41 PO; -ENOX40DI8 SUBQ; -HYDR-3797 PO; -LORA10CA PO; -OXYC1TAB24 PO; +OXYC5TAB72 PO; +SENN-133 PO
[2016-04-24] MEDS ORDERED: MetoCLOpramide 5 mg/mL 2 mL Inj ONE (13:14)
[2016-04-24] MEDS ORDERED: Propofol 10,000 mCg/mL 20 mL Inj ONE (13:14)
[2016-04-24] MEDS ORDERED: Neostigmine 1 mg/mL 5 mL Inj ONE (13:14)
[2016-04-24] MEDS ORDERED: Glycopyrrolate 0.2 mg/mL 5 mL Inj ONE (13:14)
[2016-04-24] MEDS ORDERED: fentaNYL-PF 50 mCg/mL 2 mL Inj ONE (13:14)
[2016-04-24] MEDS ORDERED: Ondansetron 2 mg/mL 2 mL Inj ONE (13:14)
[2016-04-24] MEDS ORDERED: Dexamethasone 4 mg/mL Inj ONE (13:14)
[2016-04-24] MEDS ORDERED: Rocuronium 10 mg/mL 5 mL Inj ONE (13:14)
[2016-04-24] MEDS ORDERED: Lactated Ringer's 1,000 ML IV SCH (13:50)
[2016-04-24] MEDS ORDERED: Labetalol 5 mg/mL 4 mL Inj IV PRN (13:50)
[2016-04-24] MEDS ORDERED: MetoCLOpramide 5 mg/mL 2 mL Inj IVPUSH PRN (13:50)
[2016-04-24] MEDS ORDERED: HYDROmorphone 1 mg/mL Inj IVPUSH PRN (13:50)
[2016-04-24] MEDS ORDERED: Lactated Ringer's 500 ML IV PRN (13:50)
[2016-04-24] MEDS ORDERED: hydrALAZINE 20 mg/mL Inj IVPUSH PRN (13:50)
[2016-04-24] MEDS ORDERED: Atropine 0.4 mg/mL Inj IVPUSH PRN (13:50)
[2016-04-24] MEDS ORDERED: fentaNYL-PF 50 mCg/mL 2 mL Inj IVPUSH PRN (13:50)
[2016-04-24] MEDS ORDERED: Ondansetron 2 mg/mL 2 mL Inj IVPUSH PRN (13:50)
[2016-04-24] MEDS ORDERED: EPHEDrine Sulfate 50 mg/mL Inj IVPUSH PRN (13:50)
[2016-04-24] MEDS ORDERED: Phenylephrine 10,000 mCg/mL Inj IVPUSH PRN (13:50)
[2016-04-24] MEDS: Lactated Ringer's 1,000 ML IV ONE ×2 (14:08→15:12)
--- NOTE | 2016-04-24 15:47 | DRSVH ---
PROCEDURE: X-RAY E.R.C.P. - BILIARY AND PANCREATIC ([id number]) INDICATIONS: STONE REMOVAL TECHNIQUE: Fluoroscopic spot films were acquired by the gastroenterology service during ERCP procedu re. COMPARISON: [facility], CR, XR CHOLANGIOGRAM OPERATIVE, 03/18/2016, 19:12. FINDINGS: Sweeping balloon catheter is present and there is a 8mm rounded filling defect involving th e distal common bile duct likely related to a retained stone. The extrahepatic bile duct is normal i n caliber. IMPRESSION: Intraluminal filling defect involving the distal common bile duct likely a retained stone . Correlate with real time examination. Dictated by: Franklin MCKINLEY Interpreted: Heike Portillo MD on 04/24/2016 at 15:45 Transcribed by: LÁZARO on 04/24/2016 at 15:46 Approved by: Heike Portillo M.D. on 04/24/2016 at 16:17
--- NOTE | 2016-04-24 16:24 | ENDO ---
[address] [address] ENDOSCOPY PROCEDURE PATIENT: NOHEMI MONTES : 1975 MR#: [id number] ADMIT: 04/24/2016 JOB ID: [id number] DATE: 04/24/2016 PROCEDURE: Endoscopic retrograde cholangiopancreatography. INDICATION: Choledocholithiasis. Please see Dr. Tomasz Mckenna's anesthesia report for details regarding ASA classification, Mallampati score and general anesthesia. INSTRUMENT USED: TJF Q180V. PROCEDURE DETAILS: After informed consent was obtained, the patient was brought into the GI suite, where he was placed under general anesthesia. and then placed in the standard ERCP position. A bite block was placed and the initial costume shop coordinator film demonstrated a biliary stent in the expected location. Next, the side-viewing duodenoscope was introduced through the bite block without difficulty to the second portion of the duodenum. Initial endoscopic findings demonstrated a previously performed sphincterotomy and a biliary stent at the ampulla. Using a standard snare, the biliary stent was removed intact. Next, using a [employer] chinese Autotome, selective biliary cannulation was achieved with wire guidance. Initial cholangiogram demonstrated normal appearing intrahepatic ducts and the common bile duct measured approximately 9 mm. There was an approximately 5 mm filling defect in the distal CBD. Next, using 8-12 mm balloon, we were unsuccessful in sweeping the duct with the balloon as the balloon would not exit the ampulla. At this point, the previously performed sphincterotomy was extended. Following this, balloon sweep extracted multiple fragmented cholesterol stones. Final cholangiogram demonstrated no further filling defects. IMPRESSION: Endoscopic retrograde cholangiopancreatography status post biliary stent removal with extension of previous sphincterotomy and balloon sweep with extraction of multiple fragmented stones. Recommendation: Follow up in GI clinic as needed. COMPLICATIONS: None. ESTIMATED BLOOD LOSS: Less than 5 mL. MTDD
--- NOTE | 2016-04-24 19:37 | PCM.HPANE ---
Patient Data Surgeon Admitting Provider: Attending Provider:Josefina Morgan MD Primary Care Physician:Sami Santoro MD Other Provider:Daysi Rodríguez Anesthesia Reason for Visit Calculus Of Bile Duct W/O Cholangitis Ht/WT & BMI Body Mass Index Allergies Coded Allergies: No Known Allergies (Unverified , 03/17/16) Past Anesthesia History Anesthesia History: Denies:: Anesthesia Reactions, Malignant Hyperthermia Diabetes History Hx Diabetes?: No MRSA MRSA: No Medications Reported Medications Losartan/HCTZ 100-25 mg 1 Each Tablet1 Tablet PO DAILY Ref 0 04/04/15 Atorvastatin (Lipitor)40 Mg [id number] Mg PO DAILY Ref 0 04/04/15 Discontinued Scripts Sennosides (Senna)8.6 Mg Fxcusj00.2 Mg PO DAILY #30 TABLET Prov:Tanvi Gilbert MD 03/19/16 [Bisacodyl] (Dulcolax Rectal Suppository)10 MG SUPP No Conflict Check10 Mg RECTAL DAILY PRN For Constipation #14 Prov:Tanvi Gilbert MD 03/19/16 oxyCODONE 5 Mg Tablet5 Mg PO Q4H PRN For Moderate Pain #30 TABLET Prov:Tanvi Gilbert MD 03/19/16 History History of ENT Problems?: No Hx of Heart Problems?: Yes Cardiovascular History: Positive for:: Hypertension (HYPERLIPIDEMIA) Hx of Respiratory Problem?: No Respiratory History: Denies:: Use of C-PAP Machine (SNORES) Hx Neurologic Problems?: No Hx of GI Problems?: No Hx of Problems?: No Male Hx: Denies:: Prostate Problems Scrotal Mass Testicular Surgery Skin History: Denies:: History Skin Disorders? 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) Musculoskeletal Trauma (S/P RT HIP DEBRIDEMENT OF LABRAL TEAR) Hx of Psycho/Social Problems?: No Hx Surgeries?: Yes (I&D NECK ABCESS,RT HIP DEBRIDEMENT OF LABRUM TEAR, hip replacement) Hx Any Other Health Problems?: Yes Other History: Denies:: Cancer Endocrine Disease Hospitalization Thyroid Disease History Blood Transfusions: Denies:: Blood Transfusions Hx Diabetes: No Hx Alcohol Use: Yes (Once per week)Hx Substance Use: No Smoking Status: Former Smoker Have You Smoked inLast 12 mo: No Stop/Bang Risk Assessment Category Category 1A: Patient has history of documented sleep apnea, and HAS NOT received any narcotic, sedative or anesthesia administration during this stay. Category 1B: Patient has history of documented sleep apnea, and HAS received any narcotic , sedative or anesthesia administration during this stay Category 2: Patient has SUSPECTED Obstructive Sleep Apnea, and HAS received any narcotic , sedative or anesthesia administration during this stay. Category 3: Patient has SUSPECTED Obstructive Sleep Apnea and HAS NOT received narcotic, sedative or anesthesia administration during this stay. Category 4: Outpatient in Procedural Areas with known sleep apnea or who screen positive for High Risk via the STOP/BANG questionnaire. Exam Exam General Appearance: Alert, Oriented X3, Cooperative, No Acute Distress HEENT/AIRWAY: MP 2 Lungs: Clear to Auscultation, Normal Air Movement Heart: Exam Unremarkable, Regular Rate/Rhythm, No Murmurs/Rubs/Gallops Plan Impression Patient chart reviewed, patient interviewed and anesthestic plan with risks, benefits, and alternatives discussed, and informed consent obtained. NPO Status: 199904/07/15 ASA Physical Status: ASA2 Mod Systemic Disease Anesthetic Plan: GA Bene/Risks/Altern/Consents: Yes HP Complete Prior to Induction: Yes Tomasz Mckenna MD Apr 24, 2016 08:00
--- NOTE | 2016-04-24 19:38 | PCM.ANEP2 ---
Post Anesthesia Evaluation ASA/CMS Post Anesthesia VS in Patient's Normal Range?: Yes Resp Stable; Airway Patent?: Yes CV Function & Hydration Stable: Yes Mental Status Recovered?: Yes Pain control Satisfactory?: Yes N/V Control Satisfactory?: Yes Tomasz Mckenna MD Apr 24, 2016 19:38
--- NOTE | 2016-04-24 19:38 | PCM.ANEP1 ---
Post Anesthesia Phase 1 PACU Phase 1 Assessment Vital Signs Vital Signs Date Time Temp Pulse Resp B/P Pulse Ox O2 Delivery O2 Flow Rate FiO2 04/24/16 15:58 75 14 144/80 96 Room Air 04/24/16 15:51 72 14 145/83 99 Room Air 04/24/16 15:45 36.2 73 15 144/78 96 Room Air 04/24/16 15:40 87 20 136/79 93 Room Air 04/24/16 15:36 79 11 139/72 97 Room Air 04/24/16 15:30 87 10 144/81 96 Simple Mask 8 04/24/16 15:25 36.3 82 17 173/101 98 Simple Mask 8 04/24/16 13:49 80 15 118/79 95 Room Air Anesthetic Administered: GA Level of Alertness: Awake, talking BANGURA's with Equal Strength: Yes Pain: No Nausea or Vomiting: No Oxygen Delivery: Room Air Lungs: Clear to Auscultation, Normal Air Movement Dermatome Level: Full Sensation Tomasz Mckenna MD Apr 24, 2016 19:38
== END 2016-04-24 23:59 | disposition home or self-care (01) ==
LOC: END 13:13
PROVIDERS: ATTEND Internal Medicine Gastroenterology
DX: K80.50 Calculus of bile duct without cholangitis or cholecystitis without obstruction (principal); E78.5 Hyperlipidemia, unspecified; I10 Essential (primary) hypertension; Z87.891 Personal history of nicotine dependence
CPT/HCPCS: 43262; 43264; 43275; 74330; J1100; J2250; J2405; J2710; J2765; J3010; J7120; Q9967